=== PATIENT | male | born 2005 | race Caucasian/White ===

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

== ENCOUNTER 2025-08-22 17:25 | Emergency (ER) | payer OTHER, SELFPAY ==
[2025-08-22 17:26] VITALS: BP 158/108; PULSE 50; RESP 18; TEMP 36.6; O2SAT 99
--- NOTE | 2025-08-22 17:43 | ED.GENADUL_ITS ---
Discharge Plan Disposition Patient Disposition: Home Condition: Good Discharge Details Clinical Impression: Nephrolithiasis Primary Care Provider: Felicitas Seymour ED Provider: Jeanette Sofia Home Meds and New Rx's Prescriptions: New tamsulosin 0.4 mg capsule 0.4 mg PO DAILY Qty: 14 0RF morphine 15 mg tablet 15 mg PO Q6H PRNQty: 20 0RF Discharge Instructions Instructions: Kidney stones in adults, Morphine (Systemic), How to Strain Your Urine Additional Instructions: A referral has been placed to urology. Please call Dr. Shook's office first thing in the morning to schedule follow-up appointment. I encourage you to strain your urine every time you urinate to evaluate for stone fragments. Stay well-hydrated, drinking plenty of fluid throughout the day. You are being prescribed tamsulosin. Please take daily to help with stone expulsion. For pain control I recommend that you take ibuprofen 600 mg every 6 hours for pain control. Your next dose may be taken at 1145 pm. For severe pain you may use morphine 15 mg p.o. every 6 hours as needed. Please note that this is a controlled substance and may be addictive, so please only use for severe pain as needed. Heating pads may also be helpful. Return to emergency care if you develop new fevers, are unable to hold down fluids, have new severe abdominal pain, feel that you are unable to empty your bladder, unable to control your pain, or if you are very worried and need to be rechecked again immediately Stand Alone Forms: Portal Information Referrals: Ryan Shook MD [ [facility]FF PHYSICIAN, Urology] HPI General Date/Time Provider Initiated Documentation: 08/22/25 17:30 . HPI Narrative: Fuentes is a 20-year-old male who presents to the emergency department today for evaluation of right-sided flank pain wrapping around to his right lower quadrant accompanied by nausea, hematuria, and sweating/chills. He reports symptoms started this morning. Denies recorded fevers, congestion, vomiting, change in bowel movements, swelling or rashes to testicles or penis. No history of kidney problems previously; denies significant past medical history. Related Data Home Medications ?Medication ?Instructions ?Recorded ?Confirmed morphine 15 mg immediate release 15 mg PO Q6H PRN #20 tabs 08/22/25 tablet tamsulosin 0.4 mg capsule 0.4 mg PO DAILY #14 caps 10/16 Previous Rx's ?Medication ?Instructions ?Recorded morphine 15 mg immediate release 15 mg PO Q6H PRN #20 tabs 08/22/25 tablet tamsulosin 0.4 mg capsule 0.4 mg PO DAILY #14 caps 10/16 Allergies Allergy/AdvReac Type Severity Reaction Status Date / Time No Known Allergies Allergy Verified 08/22/25 17:29 General Stated Complaint: FlankPain NED: 3 Exam Const General: cooperative, anxious and other (In pain, tearful) Nutritional Appearance: overweight Orientation: alert and oriented x3 HENMT Head: normal to inspection General nose exam: external nose normal Mouth: oral mucosae normal Resp Effort & Inspection: normal respiratory effort and able to speak in complete sentences Auscultation: clear to auscultation bilaterally Cardio Rate: regular rate Rhythm: regular rhythm GI Inspection: normal to inspection, no abdominal wall ecchymosis and non-distended Palpation: soft, no guarding, no masses, no pulsatile masses and tender (R>L) Back/Spine/Pelvis Back: no CVA tenderness Neuro General: patient alert, patient oriented x3, tone normal and moves all extremities Course Vital Signs Vital signs: Vital Signs Temperature 36.6 C 08/22/25 17:26 Pulse 50 L 08/22/25 17:26 Respiratory Rate 18 08/22/25 17:26 Blood Pressure 158/108 H 08/22/25 17:26 Pulse Oximetry 99 08/22/25 17:26 Temperature 36.6 C 08/22/25 17:26 Pulse 50 L 08/22/25 17:26 Respiratory Rate 18 08/22/25 17:26 Blood Pressure 158/108 H 08/22/25 17:26 Pulse Oximetry 99 08/22/25 17:26 Oxygen Delivery Method Room Air 08/22/25 17:26 Oxygen Flow Rate 0 08/22/25 17:26 Pain Level 10 08/22/25 17:26 Medical Decision Making Fuentes is a 20-year-old male who presents to the emergency department today for evaluation of right-sided flank pain wrapping around to his right lower quadrant accompanied by nausea, hematuria, and sweating/chills. He reports symptoms started this morning. Denies recorded fevers, congestion, vomiting, change in bowel movements, swelling or rashes to testicles or penis. No history of kidney problems previously; denies significant past medical history. Physical exam remarkable for markedly uncomfortable patient who is tearful during exam. Abdomen soft, nondistended, diffusely tender to palpation, greatest on right side. No CVA tenderness. Easy work of breathing, lung sounds clear bilaterally. Normal heart sounds. Genital exam unremarkable, performed with candle making supervisor at bedside. DDx includes was not limited to: Pyelonephritis, nephrolithiasis, bladder stone, UTI On the emergency department Fuentes received IV Zofran, Toradol and morphine for pain control with good relief of symptoms. I independently interpreted the following tests: CBC notable for leukocytosis, white cell count 15.93. CMP reassuring. UA notable for specific gravity >1.030, large blood, greater than 50 RBCs. UA not consistent with UTI, no concern for infected stone at this time. CT abdomen/pelvis notable for right hydroureteronephrosis with obstructive 2 mm calculus at the right UVJ. History and presentation consistent with uncomplicated 2 mm obstructing kidney stone. No red flags concerning for infection at this time or other complications. Patient is able to take p.o. without difficulty. Pain has been well-controlled with morphine and Toradol. Reviewed discharge instructions with patient and his mother, including symptomatic management, use of tamsulosin, risks associated with opioid pain medication use, and red flags indicating need for return to emergency care. Referral placed to [facility] u[facility]. Patient voices agreement with plan of care. Imaging Data Radiologic Study: Radiologist's impression: PROCEDURE INFORMATION: Exam: CT Abdomen And Pelvis Without Contrast Exam date and time: 08/22/2025 7:22 PM Age: 20 years old Clinical indication: Other: Flank pain; Hematuria, flank pain TECHNIQUE: Imaging protocol: Computed tomography of the abdomen and pelvis without contrast. Radiation optimization: All CT scans at this facility use at least one of these dose optimization techniques: automated exposure control; mA and/or kV adjustment per patient size (includes targeted exams where dose is matched to clinical indication); or iterative reconstruction. COMPARISON: No relevant prior studies available. FINDINGS: Liver: Hepatic steatosis. Gallbladder and biliary ducts: Normal Pancreas: Normal. Spleen: Normal. Adrenal glands: No mass. Kidneys and ureters: Right hydroureteronephrosis, with obstructive 2 mm calculus at the right UVJ (series 2, image 432). Stomach and bowel: Normal. Appendix: No evidence of appendicitis. Intraperitoneal space: No free air. No abscess. No ascites. Vasculature: No abdominal aortic aneurysm. Lymph nodes: No enlarged lymph nodes. Urinary bladder: Unremarkable as visualized. Reproductive: Unremarkable as visualized. Bones/joints: No acute abnormality. Soft tissues: Normal. IMPRESSION: Right hydroureteronephrosis, with obstructive 2 mm calculus at the right UVJ (series 2, image 432). PFSH All Active Problems (Updated 08/22/25 @ 21:08 by Jeanette Medina) Nephrolithiasis (Chronic) Pediatric body mass index (BMI) of greater than or equal to 95th percentile for age (Acute) Medical History Snores Sprained ankle Happened 2-3 weeks ago 07/23/19 Surgical History Circumcision Family History Mother Obstructive sleep apnea Essential hypertension Mental disorder DEPRESSION/ANXIETY Father Obstructive sleep apnea Diabetes Mental disorder DEPRESSION PBA (pseudobulbar affect) Multiple sclerosis Asthma GRANDPARENT Diabetes Essential hypertension Heart disease Neoplasm Brother ADHD (attention deficit hyperactivity disorder) Asthma Social History (Updated 07/31/22 @ 16:34 by Joya Long RN) Smoking/Tobacco Use Status: Never Second Hand Exposure: No Smoking risk assessment performed?: Yes Alcohol Intake: current Alcohol Intake frequency: a few times a week Drug use: Daily Substance use type: marijuana Adopted: No Foster care: No Communication Needs: None Education Level: high school Details: [employer], 12th grade ([id number]) Pets and animals: Yes (1 dog, 2 cats) Pets and animals: cat(s) and dog(s) Current gender identity: male What type of physical activity do you participate in: other Details: Lacrosse Seatbelt use: always Helmet use: Yes Helmet use: always Fire extinguisher in home: No Carbon monox detector in home: Yes Firearms in home: Yes Firearms unloaded and locked: Yes Do you feel safe at home: Yes Do you feel safe in your relationship?: Yes
[2025-08-22 17:59] LABS: Lab Add On Test DONE
[2025-08-22 18:04] LABS: Glucose Negative (Negative)
[2025-08-22 18:13] LABS: C & S Indicated? No; RBC >50 HPF (0-2); WBC 0-2 HPF (0-5)
[2025-08-22] MEDS: MORPHine 10 MG/ML VIAL 5 MG IVP (18:26)
[2025-08-22] MEDS: Ondansetron 4 MG/2 ML VIAL IVP (18:26)
[2025-08-22] MEDS: Ketorolac 15 MG/ML VIAL IVP (18:27)
[2025-08-22] MEDS: Normal Saline 1,000 ML 1000 ML IV (18:40)
--- NOTE | 2025-08-22 18:45 | DI.CT_ITS ---
Exam(s) CT ABDOMEN PELVIS WO EXAM: CT ABDOMEN PELVIS WO CLINICAL HISTORY: hematuria, flank pain. TECHNIQUE: Imaging Protocol: Axial computed tomography images with coronal and sagittal reformatted images were created and reviewed CONTRAST MATERIAL: Intravenous: none Oral: None COMPARISON: No exams were available for comparison FINDINGS: VISUALIZED LUNG BASES: No nodules nor pleural effusions evident. ABDOMEN: There is no ascites. LIVER: There is diffusely hypodense implying steatosis. There no discrete focal hepatic lesions. There are no obvious dilated intrahepatic ducts. GALLBLADDER/BILIARY: No obvious gallbladder pathology. CBD is not dilated. PANCREAS: No evidence of pancreatic mass nor dilatation of the pancreatic duct. SPLEEN: Spleen is not enlarged. No obvious intrasplenic lesions. ADRENALS: There are no significant adrenal masses. KIDNEYS:Left kidney unremarkable. There is mild hydronephrosis-hydroureter on the right side. There is a culprit 2 mm calculus at the right ureterovesical junction. No other radiopaque calculi seen in either ureter. No renal cysts nor solid renal masses.. ABDOMINAL AORTA: Abdominal aorta is not enlarged. LYMPH NODES: There is no retroperitoneal nor paraaortic adenopathy. ABDOMINAL WALL: No evidence of significant anterior abdominal wall nor inguinal hernia. GI: There is no evidence of bowel obstruction, free air, nor abscess. PELVIS: LYMPH NODES: There is no intrapelvic nor inguinal adenopathy. GI: No evidence of appendicitis.No evidence of sigmoid diverticulitis. URINARY BLADDER: Partially collapsed. REPRODUCTIVE: Prostate size normal. Seminal vesicles unremarkable. OSSEOUS: No significant osseous lesions. No fractures. IMPRESSION: 1. Main finding here is a small 2 millimeter calculus in the lower right ureter at the ureterovesical junction with mild ipsilateral hydro nephrosis and hydroureter. 2. There are no remaining radiopaque calculi in either kidney. 3. Hepatic steatosis incidentally noted. Preliminary virtual Radiology report was reviewed. RADIATION DOSE DELIVERED: 945.77mGy.cm Total DLP DATA REPOSITORY: All CT scans at this facility are submitted to the National Radiology Data Registry (NRDR) Dose Index Registry (DIR) with the [employer] (ACR). RADIATION OPTIMIZATION: All CT scans at this facility use at least one of these dose optimization techniques: automated exposure control; mA and/or kV adjustment per patient size (includes targeted exams where dose is matched to clinical indication); or iterative reconstruction.
[2025-08-22 18:47] LABS: Abs Immature Grans 0.07 10^3/uL (0.0-0.06); HCT 45.6 % (40.0-50.0); HGB 15.4 g/dL (13.5-17.5); Immature Grans % 0.4 %; MCH 28.0 pg (27.0-33.0); MCHC 33.8 % (32.0-36.0); MCV 83 fL (80-95); MPV 10.5 fL (8.0-11.0); Platelet Count 308 10^3/uL (130-400); RBC 5.50 10^6/uL (4.36-5.78); RDW 12.2 % (11.8-14.1); RDW-SD 37.4 fL; WBC 15.93 10^3/uL (4.4-10.8)
[2025-08-22 19:02] LABS: Lipase 23 U/L (<53)
[2025-08-22 19:04] LABS: ALT 53 U/L (10-49); AST 31 U/L (<34); Albumin 5.0 g/dL (3.2-5.0); Alkaline Phosphatase 76 U/L (46-116); Anion Gap 13.2 mmol/L (3-11); BUN 17 mg/dL (9-23); Bilirubin, Total 1.00 mg/dL (0.2-1.2); CO2 20.8 mmol/L (20.0-31.0); Calcium 9.7 mg/dL (8.3-10.6); Chloride 107 mmol/L (98-107); Glucose 118 mg/dL (74-106); Potassium 3.4 mmol/L (3.5-5.1); Sodium 141 mmol/L (136-145); Total Protein 8.1 g/dL (5.7-8.2)
--- NOTE | 2025-08-22 20:55 | DI.[facility]AD_ITS ---
PROCEDURE INFORMATION: Exam: CT Abdomen And Pelvis Without Contrast Exam date and time: 08/22/2025 7:22 PM Age: 20 years old Clinical indication: Other: Flank pain; Hematuria, flank pain TECHNIQUE: Imaging protocol: Computed tomography of the abdomen and pelvis without contrast. Radiation optimization: All CT scans at this facility use at least one of these dose optimization techniques: automated exposure control; mA and/or kV adjustment per patient size (includes targeted exams where dose is matched to clinical indication); or iterative reconstruction. COMPARISON: No relevant prior studies available. FINDINGS: Liver: Hepatic steatosis. Gallbladder and biliary ducts: Normal Pancreas: Normal. Spleen: Normal. Adrenal glands: No mass. Kidneys and ureters: Right hydroureteronephrosis, with obstructive 2 mm calculus at the right UVJ (series 2, image 432). Stomach and bowel: Normal. Appendix: No evidence of appendicitis. Intraperitoneal space: No free air. No abscess. No ascites. Vasculature: No abdominal aortic aneurysm. Lymph nodes: No enlarged lymph nodes. Urinary bladder: Unremarkable as visualized. Reproductive: Unremarkable as visualized. Bones/joints: No acute abnormality. Soft tissues: Normal. IMPRESSION: Right hydroureteronephrosis, with obstructive 2 mm calculus at the right UVJ (series 2, image 432). Dictated and Authenticated by: Joseph Layne MD. Orderin Ellyn Reid MD
[2025-08-22 21:36] VITALS: BP 131/74; PULSE 56; RESP 18; TEMP 36.6; O2SAT 98
[2025-08-22] MEDS: Tamsulosin 0.4 MG CAPCR PO (21:38)
[2025-08-22] MEDS: MORPHine IR 15 MG TAB, 4 TABS/BTL PO (21:39)
== END 2025-08-22 21:43 | disposition home or self-care (01) ==
PROVIDERS: Emergency Provider Nurse Practitioner Family; PCP Nurse Practitioner Family
DX: N20.0 Calculus of kidney (principal)
CPT/HCPCS: 80053; 83690; 96361; 96374; 96375; 99284; 74176; 81003; 81015; 85025; J1885; J2270; J2405

== ENCOUNTER 2025-08-23 16:55 | Observation (INO) | payer OTHER, SELFPAY ==
[2025-08-23 17:16] VITALS: BP 143/81; PULSE 51; RESP 22; TEMP 37.2
[2025-08-23 17:34] VITALS: BP 143/81; PULSE 51; RESP 22; TEMP 37.2
[2025-08-23] MEDS: Ondansetron 4 MG/2 ML VIAL IVP (17:56)
[2025-08-23] MEDS: Normal Saline 1,000 ML 1000 ML IV (17:56)
[2025-08-23] MEDS: Ketorolac 15 MG/ML VIAL IVP (18:00)
[2025-08-23 18:04] LABS: Abs Immature Grans 0.08 10^3/uL (0.0-0.06); HCT 41.5 % (40.0-50.0); HGB 13.8 g/dL (13.5-17.5); Immature Grans % 0.5 %; MCH 27.9 pg (27.0-33.0); MCHC 33.3 % (32.0-36.0); MCV 84 fL (80-95); MPV 10.5 fL (8.0-11.0); Platelet Count 237 10^3/uL (130-400); RBC 4.95 10^6/uL (4.36-5.78); RDW 12.3 % (11.8-14.1); RDW-SD 37.6 fL; WBC 17.05 10^3/uL (4.4-10.8)
[2025-08-23 18:30] LABS: Anion Gap 8.4 mmol/L (3-11); BUN 17 mg/dL (9-23); CO2 26.6 mmol/L (20.0-31.0); Calcium 9.1 mg/dL (8.3-10.6); Chloride 107 mmol/L (98-107); Glucose 102 mg/dL (74-106); Potassium 3.9 mmol/L (3.5-5.1); Sodium 142 mmol/L (136-145)
--- NOTE | 2025-08-23 18:45 | DI.CT_ITS ---
Exam(s) CT ABDOMEN PELVIS WO EXAM: CT ABDOMEN PELVIS WO CLINICAL HISTORY: kidney stone, continued vomiting. TECHNIQUE: Imaging Protocol: Axial computed tomography images with coronal and sagittal reformatted images were created and reviewed. COMPARISON: CT CT ABDOMEN PELVIS WO from 08/22/2025 FINDINGS: ABDOMEN: Lung Bases: Normal where visualized. Liver: There is diffuse decreased attenuation of the liver consistent with fatty infiltration. No measurable mass. Gallbladder and biliary tract: No radiodense calculus or biliary ductal dilation. Pancreas: Normal density, no abnormal calcifications or inflammatory process. Spleen: Normal. Kidneys: Normal size, contour and axis.There is again seen a 2 mm right UVJ stone causing mild hydronephrosis. This is grossly unchanged compared to the prior examination. No other renal stones are present. No masses seen. There is a circum aortic left renal vein. Adrenal glands: No mass is seen. Lymph nodes: Within normal limits. Abdominal Aorta: Abdominal portion non-dilated. PELVIS: Bladder:The urinary bladder wall is mildly thickened which may be due to underdistention. Cystitis should also be considered. Bowel: No obstruction or bowel wall thickening. Appendix is unremarkable. Peritoneal cavity: No ascites, collection or mesenteric inflammatory response. No free air. Reproductive organs: Unremarkable as visualized. Bones: Within normal limits. Soft Tissues: Within normal limits. IMPRESSION: 1. There is again seen a 2 mm right UVJ stone causing hydronephrosis which appears unchanged. 2. Mild thickening of the wall of the urinary bladder. This may be due to underdistention but cystitis should also be considered. 3. Diffuse fatty infiltration of the liver. 4. The preliminary [facility] report was reviewed. RADIATION DOSE DELIVERED: 879.29mGy.cm Total DLP DATA REPOSITORY: All CT scans at this facility are submitted to the National Radiology Data Registry (NRDR) Dose Index Registry (DIR) with the [employer] (ACR). RADIATION OPTIMIZATION: All CT scans at this facility use at least one of these dose optimization techniques: automated exposure control; mA and/or kV adjustment per patient size (includes targeted exams where dose is matched to clinical indication); or iterative reconstruction.
--- NOTE | 2025-08-23 18:48 | NUR.NOTE ---
Pt requested to go to bathroom. IV infusion complete and disconnected. Pt. commented that toradol really worked. Morphine neverever works and leaves me feeling like shit. I wish they would stop giving me morphine. Ambulatory to bathroom and back without incident. Mom at bedside.Nursing Note:
[2025-08-23 19:03] LABS: Glucose Negative (Negative)
[2025-08-23 19:10] LABS: C & S Indicated? No; RBC >50 HPF (0-2); WBC Negative HPF (0-5)
[2025-08-23 19:37] VITALS: BP 121/64; PULSE 64; TEMP 37; O2SAT 96
--- NOTE | 2025-08-23 19:45 | DI.VRAD_ITS ---
PROCEDURE INFORMATION: Exam: CT Abdomen And Pelvis Without Contrast Exam date and time: 08/23/2025 7:19 PM Age: 20 years old Clinical indication: Vomiting; Additional info: Kidney stone, continued vomiting TECHNIQUE: Imaging protocol: Computed tomography of the abdomen and pelvis without contrast. COMPARISON: CT ABDOMEN PELVIS WO 08/22/2025 7:22 PM FINDINGS: Liver: Normal. No mass. Gallbladder and biliary ducts: Normal. No calcified stones. No ductal dilation. Pancreas: Normal. No ductal dilation. Spleen: Normal. No splenomegaly. Adrenal glands: Normal. No mass. Kidneys and ureters: 3 mm stone again noted at the right ureterovesical junction. Moderate right hydroureteronephrosis and periureteral fatty stranding. Left kidney appears normal. No evidence of nephrolithiasis. Stomach and bowel: Unremarkable. No obstruction. No mucosal thickening. Appendix: The appendix is visualized and appears normal. Intraperitoneal space: Unremarkable. No free air. No significant fluid collection. Vasculature: Unremarkable. No abdominal aortic aneurysm. Lymph nodes: Unremarkable. No enlarged lymph nodes. Urinary bladder: Mild diffuse bladder wall thickening. 3 mm right UVJ stone again noted. Otherwise unremarkable. Reproductive: Unremarkable as visualized. Bones/joints: Unremarkable. No acute fracture. Soft tissues: Unremarkable. IMPRESSION: 1. Persistent 3 mm right UVJ stone with moderate hydronephrosis 2. Mild apparent bladder wall thickening may be due to underdistention or reflect cystitis Dictated and Authenticated by: Ronan Russell MD. Orderin Ellyn Reid MD
[2025-08-23] MEDS: cefTRIAXone 2 GM/50 ML BAG IVPB (19:54)
[2025-08-23] MEDS: Tamsulosin 0.4 MG CAPCR PO (20:51)
--- NOTE | 2025-08-23 21:10 | W.ED.GENAD ---
Discharge Plan Disposition Patient Disposition: Admit to [facility] Condition: Good Discharge Details Clinical Impression: Nephrolithiasis Primary Care Provider: Felicitas Seymour ED Provider: Jeanette Sofia Home Meds and New Rx's Prescriptions: No Action tamsulosin 0.4 mg capsule 0.4 mg PO DAILY Qty: 14 0RF morphine 15 mg tablet 15 mg PO Q6H PRNQty: 20 0RF HPI General Date/Time Provider Initiated Documentation: 08/23/25 17:19. HPI Narrative: Fuentes is a 20-year-old male presents to the emergency department accompanied by his mother for uncontrolled pain and vomiting associated with kidney stone since this afternoon. He was evaluated in the emergency department last night after sudden onset of right-sided flank pain wrapping around to his groin, diagnosed with 2 mm calculus at the right UVJ with mild right hydronephrosis. Today he developed uncontrollable vomiting starting at 3 PM, unable to keep down any fluids or medications. Denies recent fever/chills, illness such as congestion/sore throat/cough, change in bowel movements (no BM today), difficulty emptying his bladder, swelling or rashes to testicles or penis. Strong family history of kidney stones. Related Data Home Medications ?Medication ?Instructions ?Recorded ?Confirmed morphine 15 mg immediate release 15 mg PO Q6H PRN #20 tabs 08/22/25 08/23/25 tablet tamsulosin 0.4 mg capsule 0.4 mg PO DAILY #14 caps 08/22/25 08/23/25 Previous Rx's ?Medication ?Instructions ?Recorded morphine 15 mg immediate release 15 mg PO Q6H PRN #20 tabs 08/22/25 tablet tamsulosin 0.4 mg capsule 0.4 mg PO DAILY #14 caps 08/22/25 Allergies Allergy/AdvReac Type Severity Reaction Status Date / Time No Known Allergies Allergy Verified 08/23/25 17:23 General Stated Complaint: Urinary NED: 3 Exam Const General: cooperative, healthy appearing, no acute distress and well developed Nutritional Appearance: average body habitus Orientation: alert and oriented x3 HENMT Head: normal to inspection Face and sinus: dry mucous membranes (slightly tacky) Resp Effort & Inspection: normal respiratory effort and paradoxical thoraco-abdominal movements Auscultation: clear to auscultation bilaterally Cardio Rate: regular rate Rhythm: regular rhythm GI Inspection: normal to inspection and non-distended Palpation: soft, no guarding and nontender Back/Spine/Pelvis Back: no CVA tenderness Course Vital Signs Vital signs: Vital Signs Temperature 37.2 C 08/23/25 17:16 Pulse 51 L 08/23/25 17:16 Respiratory Rate 22 08/23/25 17:16 Blood Pressure 143/81 H 08/23/25 17:16 Temperature 37 C 08/23/25 19:37 Pulse 64 08/23/25 19:37 Respiratory Rate 22 08/23/25 17:34 Blood Pressure 121/64 08/23/25 19:37 Blood Pressure Mean 83 08/23/25 19:37 Pulse Oximetry 96 08/23/25 19:37 Pain Level 9 08/23/25 17:34 Lab/Test Results Lab/Test Results: 08/23/25 20:22 Blood Blood Culture - Pending 08/23/25 19:45 Blood Blood Culture - Pending Laboratory Tests Range/Units 08/23/25 08/23/25 17:53 18:48 WBC (4.4-10.8) 10^3/uL 17.05 H RBC (4.36-5.78) 10^6/uL 4.95 Hgb (13.5-17.5) g/dL 13.8 Hct (40.0-50.0) % 41.5 MCV (80-95) fL 84 MCH (27.0-33.0) pg 27.9 MCHC (32.0-36.0) % 33.3 RDW (11.8-14.1) % 12.3 Plt Count (130-400) 10^3/uL 237 MPV (8.0-11.0) fL 10.5 Immature Gran % % 0.5 Neutrophils % % 82.3 Lymphocytes % % 11.3 Monocytes % % 5.3 Eosinophils % % 0.4 Basophils % % 0.2 Nucleated RBC % (0.0-0.3) % 0.0 Absolute Neutrophils (1.2-6.7) 10^3/uL 14.03 H Absolute Lymphocytes (1.2-3.4) 10^3/uL 1.93 Absolute Monocytes (0.1-0.8) 10^3/uL 0.90 H Absolute Eosinophils (0.0-0.7) 10^3/uL 0.07 Absolute Basophils (0.0-0.2) 10^3/uL 0.03 Sodium (136-145) mmol/L 142 Potassium (3.5-5.1) mmol/L 3.9 Chloride (98-107) mmol/L 107 Carbon Dioxide (20.0-31.0) mmol/L 26.6 Anion Gap (3-11) mmol/L 8.4 BUN (9-23) mg/dL 17 Creatinine (0.73-1.18) mg/dL 1.15 Est GFR (CKD-EPI 2020) (mL/min/1.73m2) 80.26 Glucose (74-106) mg/dL 102 Calcium (8.3-10.6) mg/dL 9.1 Urine Color (Yellow) Yellow Urine Clarity (Clear) Clear Urine pH (5-8) 6.0 Ur Specific [place] (1.005-1.025) 1.020 Urine Protein (Neg-Trace) mg/dL Trace Urine Ketones (Negative) mg/dL Trace H Urine Blood (Negative) Large H Urine Nitrite (Negative) Negative Urine Bilirubin (Negative) Negative Urine Urobilinogen (Up to 0.2) mg/dL 0.2 Ur Leukocyte Esterase (Negative) Negative Urine RBC (0-2) HPF >50 H Urine WBC (0-5) HPF Negative Ur Epithelial Cells (Negative) HPF Rare Urine Crystals (Negative) HPF Negative Urine Bacteria (Negative) HPF Moderate Urine Casts (Negative) LPF Negative Urine Mucus (Negative) Moderate Ur Culture Indicated? No Urine Glucose (Negative) mg/dL Negative Medical Decision Making Fuentes is a 20-year-old male presents to the emergency department accompanied by his mother for uncontrolled pain and vomiting associated with kidney stone since this afternoon. He was evaluated in the emergency department last night after sudden onset of right-sided flank pain wrapping around to his groin, diagnosed with 2 mm calculus at the right UVJ with mild right hydronephrosis. Today he developed uncontrollable vomiting starting at 3 PM, unable to keep down any fluids or medications. Denies recent fever/chills, illness such as congestion/sore throat/cough, change in bowel movements (no BM today), difficulty emptying his bladder, swelling or rashes to testicles or penis. Strong family history of kidney stones. Physical exam remarkable for uncomfortable appearing patient. Slightly tacky mucous membranes. Easy work of breathing, lung sounds clear bilaterally. Normal heart sounds. Abdomen soft, nondistended, nontender to palpation. History and presentation consistent with kidney stone that has failed outpatient management. I independently interpreted the following tests: Worsening leukocytosis today, 17.05 (vs 15.93 yesterday). CMP unremarkable. Patient continues to have large blood in urine, no WBCs, no nitrates, moderate bacteria. Patient treated for presumed infected stone with ceftriaxone (no recent hospitalizations, h/o UTI, or recent abx use) Urology is not available tonight or tomorrow here in house. I called [facility] [place], discussed case with Dr. Malone including patient presentation and labs, he is agreeable with plan for ceftriaxone. Patient does not require emergent intervention, patient to be listed for tomorrow for stenting in the afternoon. Discussed case with Dr. Espinoza, hospitalist. Patient to be admitted upstairs while awaiting [facility] transfer tomorrow. Imaging Data Radiologic Study: Radiologist's impression: PROCEDURE INFORMATION: Exam: CT Abdomen And Pelvis Without Contrast Exam date and time: 08/23/2025 7:19 PM Age: 20 years old Clinical indication: Vomiting; Additional info: Kidney stone, continued vomiting TECHNIQUE: Imaging protocol: Computed tomography of the abdomen and pelvis without contrast. COMPARISON: CT ABDOMEN PELVIS WO 08/22/2025 7:22 PM FINDINGS: Liver: Normal. No mass. Gallbladder and biliary ducts: Normal. No calcified stones. No ductal dilation. Pancreas: Normal. No ductal dilation. Spleen: Normal. No splenomegaly. Adrenal glands: Normal. No mass. Kidneys and ureters: 3 mm stone again noted at the right ureterovesical junction. Moderate right hydroureteronephrosis and periureteral fatty stranding. Left kidney appears normal. No evidence of nephrolithiasis. Stomach and bowel: Unremarkable. No obstruction. No mucosal thickening. Appendix: The appendix is visualized and appears normal. Intraperitoneal space: Unremarkable. No free air. No significant fluid collection. Vasculature: Unremarkable. No abdominal aortic aneurysm. Lymph nodes: Unremarkable. No enlarged lymph nodes. Urinary bladder: Mild diffuse bladder wall thickening. 3 mm right UVJ stone again noted. Otherwise unremarkable. Reproductive: Unremarkable as visualized. Bones/joints: Unremarkable. No acute fracture. Soft tissues: Unremarkable. IMPRESSION: 1. Persistent 3 mm right UVJ stone with moderate hydronephrosis 2. Mild apparent bladder wall thickening may be due to underdistention or reflect cystitis PFSH All Active Problems (Updated 08/23/25 @ 21:21 by Jeanette Medina) Nephrolithiasis (Chronic) Pediatric body mass index (BMI) of greater than or equal to 95th percentile for age (Acute) Medical History Snores Sprained ankle Happened 2-3 weeks ago 07/23/19 Surgical History Circumcision Family History Mother Obstructive sleep apnea Essential hypertension Mental disorder DEPRESSION/ANXIETY Father Obstructive sleep apnea Diabetes Mental disorder DEPRESSION PBA (pseudobulbar affect) Multiple sclerosis Asthma GRANDPARENT Diabetes Essential hypertension Heart disease Neoplasm Brother ADHD (attention deficit hyperactivity disorder) Asthma Social History (Updated 07/31/22 @ 16:34 by Joya Long RN) Smoking/Tobacco Use Status: Current every day Second Hand Exposure: No Smoking risk assessment performed?: Yes Alcohol Intake: current Alcohol Intake frequency: a few times a month Alcohol type: beer and hard liquor Drug use: Daily Substance use type: marijuana Adopted: No Foster care: No Communication Needs: None Education Level: high school Details: [employer], 12th grade ([id number]) Pets and animals: Yes (1 dog, 2 cats) Pets and animals: cat(s) and dog(s) Current gender identity: male What type of physical activity do you participate in: other Details: Lacrosse Seatbelt use: always Helmet use: Yes Helmet use: always Fire extinguisher in home: No Carbon monox detector in home: Yes Firearms in home: Yes Firearms unloaded and locked: Yes Do you feel safe at home: Yes Do you feel safe in your relationship?: Yes PAWSS Have you Been Recently Intoxicated or Drunk Within the Last 30 days?: Yes Have you Ever Experienced Previous Episodes of Alcohol Withdrawal?: No Have you ever Experienced Withdrawal Seizures?: No Have you ever Experienced Delirium Tremens(DT)s?: No Have you ever undergone Alcohol Rehabilitation Treatment (i.e, inpt ot outpatient treatment programs)?: No Have you ever Experienced Blackouts?: No Have you ever Combined Alcohol with other Downers within the last 90 days?: No Have you ever Combined Alcohol with any other Substance of Abuse during the last 90 days?: No Positive Blood Alcohol level on Presentation? [PCS.BAL]: No Evidence of Increased Autonomic Activity (i.e. HR>120, tremor, sweating, agitation, nausea)?: No Result: 1
--- NOTE | 2025-08-23 23:09 | W.PM.HP.N ---
Date of service: 08/23/25 Time of Service: 23:09 Assessment and Plan Assessment and plan (1) Nephrolithiasis: Status: Chronic Assessment and plan: pt for xfer to [facility] [place]. Cw pain meds (toradol)/flomax/IVF. NPO at midnight. Rocephin can be given again tomorrow at the discretion of Hospitalist. WBC most likely reactive 2/2 nv. LE/Nitrite negative x 2 (2) Nausea & vomiting: Status: Acute Assessment and plan: cw zofran History of Present Illness History of Present Illness Chief Complaint: renal calculi Narrative: This is a 20 y/o male with no significant PMH who presented to the ED yesterday with right flank pain. Work up yesterday was indicative of a renal calculi 2-3mm. Pt was sent home with flomax and pain control. Pt continued to have right flank pain as well as new onset nausea and vomiting. Pt was seen again in the ED and was reimaged. Pt was noted to have continued right renal calculi. Pt was accepted in transfer to [facility] as our Urology service is not available. Pt was accepted by Dr Malone (urology) and will be boarded here overnight. Pt states pain as well as n/v have improved since admission. No prior surgeries/no allergies/occ thc and nicotine use. Does not want NRT. NPO at midnight. Low risk dvt. Full code. Pt was give rocephin in the ED. Labs reviewed including elevated wbc. UA with hematuria. Blood cultures pending x 2. No history of renal stones in the past 1. There is again seen a 2 mm right UVJ stone causing hydronephrosis which appears unchanged. 2. Mild thickening of the wall of the urinary bladder. This may be due to underdistention but cystitis should also be considered. 3. Diffuse fatty infiltration of the liver. 4. The preliminary [facility] report was reviewed. Review of Systems All systems reviewed & are unremarkable except as noted in HPI and below PFSH All Active Problems (Updated 08/23/25 @ 23:23 by Emilio Espinoza MD) Nausea & vomiting (Acute) Nephrolithiasis (Chronic) Pediatric body mass index (BMI) of greater than or equal to 95th percentile for age (Acute) Medical History Snores Sprained ankle Happened 2-3 weeks ago 07/23/19 Surgical History Circumcision Family History Mother Obstructive sleep apnea Essential hypertension Mental disorder DEPRESSION/ANXIETY Father Obstructive sleep apnea Diabetes Mental disorder DEPRESSION PBA (pseudobulbar affect) Multiple sclerosis Asthma GRANDPARENT Diabetes Essential hypertension Heart disease Neoplasm Brother ADHD (attention deficit hyperactivity disorder) Asthma Social History (Updated 07/31/22 @ 16:34 by Joya Long RN) Smoking/Tobacco Use Status: Current every day Second Hand Exposure: No Smoking risk assessment performed?: Yes Alcohol Intake: current Alcohol Intake frequency: a few times a month Alcohol type: beer and hard liquor Drug use: Daily Substance use type: marijuana Adopted: No Foster care: No Communication Needs: None Education Level: high school Details: [employer], 12th grade ([id number]) Pets and animals: Yes (1 dog, 2 cats) Pets and animals: cat(s) and dog(s) Current gender identity: male What type of physical activity do you participate in: other Details: Lacrosse Seatbelt use: always Helmet use: Yes Helmet use: always Fire extinguisher in home: No Carbon monox detector in home: Yes Firearms in home: Yes Firearms unloaded and locked: Yes Do you feel safe at home: Yes Do you feel safe in your relationship?: Yes Meds Allergies and Home Medications Allergies Allergy/AdvReac Type Severity Reaction Status Date / Time No Known Allergies Allergy Verified 08/23/25 17:23 Home Medications ?Medication ?Instructions ?Recorded ?Confirmed ?Type morphine 15 mg immediate release 15 mg PO Q6H PRN #20 tabs 08/22/25 08/23/25 Rx tablet tamsulosin 0.4 mg capsule 0.4 mg PO DAILY #14 caps 08/22/25 08/23/25 Rx Exam Narrative Exam Narrative: heent ncat mmm neck no lad no jvd cv rrr no mrg lungs ctab abd-sntnd back mild ttp right flank Results Labs 08/23/25 17:53 08/23/25 17:53 Labs: Laboratory Results - last 24 hr 08/23/25 08/23/25 17:53 18:48 WBC 17.05 H RBC 4.95 Hgb 13.8 Hct 41.5 MCV 84 MCH 27.9 MCHC 33.3 RDW 12.3 Plt Count 237 MPV 10.5 Immature Gran % 0.5 Neutrophils % 82.3 Lymphocytes % 11.3 Monocytes % 5.3 Eosinophils % 0.4 Basophils % 0.2 Nucleated RBC % 0.0 Absolute Neutrophils 14.03 H Absolute Lymphocytes 1.93 Absolute Monocytes 0.90 H Absolute Eosinophils 0.07 Absolute Basophils 0.03 Sodium 142 Potassium 3.9 Chloride 107 Carbon Dioxide 26.6 Anion Gap 8.4 BUN 17 Creatinine 1.15 Est GFR (CKD-EPI 2020) 80.26 Glucose 102 Calcium 9.1 Urine Color Yellow Urine Clarity Clear Urine pH 6.0 Ur Specific [place] 1.020 Urine Protein Trace Urine Ketones Trace H Urine Blood Large H Urine Nitrite Negative Urine Bilirubin Negative Urine Urobilinogen 0.2 Ur Leukocyte Esterase Negative Urine RBC >50 H Urine WBC Negative Ur Epithelial Cells Rare Urine Crystals Negative Urine Bacteria Moderate Urine Casts Negative Urine Mucus Moderate Ur Culture Indicated? No Urine Glucose Negative Last Vital Signs Temp 37 C 08/23/25 19:37 Pulse 64 08/23/25 19:37 Resp 22 08/23/25 17:34 BP 121/64 08/23/25 19:37 Pulse Ox 96 08/23/25 19:37 VTE Prohylaxis Risk Level: Low Risk Contraindications: None Prophylaxis: Patient ambulatory PAWSS Have you Been Recently Intoxicated or Drunk Within the Last 30 days?: Yes Have you Ever Experienced Previous Episodes of Alcohol Withdrawal?: No Have you ever Experienced Withdrawal Seizures?: No Have you ever Experienced Delirium Tremens(DT)s?: No Have you ever undergone Alcohol Rehabilitation Treatment (i.e, inpt ot outpatient treatment programs)?: No Have you ever Experienced Blackouts?: No Have you ever Combined Alcohol with other Downers within the last 90 days?: No Have you ever Combined Alcohol with any other Substance of Abuse during the last 90 days?: No Positive Blood Alcohol level on Presentation? [PCS.BAL]: No Evidence of Increased Autonomic Activity (i.e. HR>120, tremor, sweating, agitation, nausea)?: No Result: 1 Time Spent Time spent with Patient: <40 minutes Time was spent: preparing to see the patient(eg.review tests), obtaining and/or reviewing separately otained hiistory, ordering medications,tests, procedures, referring, communicating with other health animal care assistant, indepentently interpreting results, counseling the patient and care coordination
[2025-08-23] MEDS: Lactated Ringers 1,000 ML 150 ML IV (23:27)
[2025-08-24] VITALS (7 sets, daily range): BP systolic 103–125; BP diastolic 58–73; PULSE 55–68; RESP 16–18; TEMP 36.6–37.2; O2SAT 96–100
[2025-08-24 06:00] LABS: Abs Immature Grans 0.04 10^3/uL (0.0-0.06); HCT 40.2 % (40.0-50.0); HGB 13.1 g/dL (13.5-17.5); Immature Grans % 0.4 %; MCH 28.0 pg (27.0-33.0); MCHC 32.6 % (32.0-36.0); MCV 86 fL (80-95); MPV 11.0 fL (8.0-11.0); Platelet Count 226 10^3/uL (130-400); RBC 4.68 10^6/uL (4.36-5.78); RDW 12.5 % (11.8-14.1); RDW-SD 38.9 fL; WBC 9.99 10^3/uL (4.4-10.8)
[2025-08-24 06:19] LABS: ALT 31 U/L (10-49); AST 21 U/L (<34); Albumin 4.1 g/dL (3.2-5.0); Alkaline Phosphatase 56 U/L (46-116); Anion Gap 8.2 mmol/L (3-11); BUN 13 mg/dL (9-23); Bilirubin, Total 0.70 mg/dL (0.2-1.2); CO2 27.8 mmol/L (20.0-31.0); Calcium 8.6 mg/dL (8.3-10.6); Chloride 107 mmol/L (98-107); Glucose 96 mg/dL (74-106); Potassium 3.6 mmol/L (3.5-5.1); Sodium 143 mmol/L (136-145); Total Protein 6.6 g/dL (5.7-8.2)
[2025-08-24] MEDS: Lactated Ringers 1,000 ML 150 ML IV ×3 (06:20→19:17)
[2025-08-24] MEDS: Tamsulosin 0.4 MG CAPCR PO (08:01)
--- NOTE | 2025-08-24 08:08 | PDOC.CMIN ---
Date of service: 08/24/25 Time of Service: 08:[address] [facility] Initial Assessment Reason for Hospitalization: nephrolithiasis Functional Status/Living Situation Patient Presentation: Fuentes presented to the ED last night with right flank pain. He had been seen in the ER the day prior and diagnosed with a right sided kidney stone and mild hydronephrosis. He was discharged at that time with instructions to f/u with urology, and was given prescriptions for flomax and pain control. Yesterday he developed uncontrolled vomiting, was unable to keep down any fluids or medications, so he returned to the ED. Fuentes has been accepted for transfer by [facility] urology, as [facility] urology is not available until next week. Fuentes is aware of the need for transfer and its reasoning. Fuentes was sitting up in bed, watching TV, when CM met with him today. He was very pleasant with CM. Fuentes lives at home with his parents. He attends [employer] in [place], [place]. 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 Fuentes denied any pain. He is being kept NPO for possible procedure at [facility], and this is his only complaint for CM. 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: Other (student) Instrumental Activities of Daily Living (ADLs): Independent Medications Medication Management: No Issues/Barriers identified Advance Directives Advance Directives: Do you have an Advance Directive: N 03/02/13, 19:06 AD On File at [facility]: N 03/02/13, 18:34 Date Asked 08/23/25 Today, 07:06 AD Date Reviewed COLST On File at [facility] No 06/02/23, 20:14 COLST Date Scanned Code Status Resuscitation Status Full Code Insurance Coverage/Financial Issues Insurance: [employer] Care Team Visit Care Team Role Provider Type Gaston Reese MD [facility] STAFF PHYSICIAN Felicitas Seymour Primary Care Provider NURSE PRACTITIONER Jeanette Medina Emergency Provider NURSE PRACTITIONER Emilio Espinoza MD Admit Provider [facility] STAFF PHYSICIAN Attending Provider Discharge Potential Discharge Needs: Other (transfer to [facility] urology service ) Anticipated Barriers to Discharge: Bed availability Patient/Family Education Needs: Review discharge instructions, discuss Ask Me Three Transportation: EMS Plan: Fuentes will transfer to [facility] once a bed is available for him. He will transport via EMS as arranged by the RN finishing area supervisor. CM will continue to follow, and provide a new abscence note if needed. Social Determinants of Health Screening Social Determinants of health last assessed in clinic: 08/24/25 Will the Patient Participate in the Screening?: Yes Do you worry about having a steady place to live?: no Problems where you live: no known problems In the past 12 months, have you had to go without electric, gas, oil or water in your home?: no 1. Within the past 12 months, we worried whether our food would run out before we got money to buy more.: Don't know/refused 2. Within the past 12 months, the food we bought just didn't last and we didn't have money to get more.: Don't know/refused Has lack of transportation kept you from medical appointments or from doing things needed for daily living?: no Has anyone in your life made you feel unsafe or unsupported?: no How hard is it for you to pay for the very basics like food, housing, medical care, and heating? 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 is a student in [employer] school who is living with his parents [facility] All Active Problems (Updated 08/23/25 @ 23:23 by Emilio Espinoza MD) Nausea & vomiting (Acute) Nephrolithiasis (Chronic) Pediatric body mass index (BMI) of greater than or equal to 95th percentile for age (Acute) Medical History Snores Sprained ankle Happened 2-3 weeks ago 07/23/19 Surgical History Circumcision Family History Mother Obstructive sleep apnea Essential hypertension Mental disorder DEPRESSION/ANXIETY Father Obstructive sleep apnea Diabetes Mental disorder DEPRESSION PBA (pseudobulbar affect) Multiple sclerosis Asthma GRANDPARENT Diabetes Essential hypertension Heart disease Neoplasm Brother ADHD (attention deficit hyperactivity disorder) Asthma Social History (Updated 07/31/22 @ 16:34 by Joya Long RN) Smoking/Tobacco Use Status: Current every day Second Hand Exposure: No Smoking risk assessment performed?: Yes Alcohol Intake: current Alcohol Intake frequency: a few times a month Alcohol type: beer and hard liquor Drug use: Daily Substance use type: marijuana Adopted: No Foster care: No Housing: house Communication Needs: None Education Level: high school Details: [employer], 12th grade ([phone]) Pets and animals: Yes (1 dog, 2 cats) Pets and animals: cat(s) and dog(s) Current gender identity: male What type of physical activity do you participate in: other Details: Lacrosse Seatbelt use: always Helmet use: Yes Helmet use: always Fire extinguisher in home: No Carbon monox detector in home: Yes Firearms in home: Yes Firearms unloaded and locked: Yes Do you feel safe at home: Yes Do you feel safe in your relationship?: Yes
--- NOTE | 2025-08-24 17:25 | W.PM.DS.N ---
Date of service: 08/24/25 Time of Service: 17:25 DS: Diagnosis Discharge Diagnosis (1) Nephrolithiasis: Status: Chronic (2) Nausea & vomiting: Status: Acute Discharge Plan Disposition Patient Disposition: Transfer-Acute Inpatient Care Specific Acute Inpt Facility: [facility] Condition: Stable Discharge Details Reason For Visit: Renal Calculi Admit Date/Time: 08/23/25 23:05 Admit Provider: Emilio Espinoza Attending Provider: Emilio Espinoza Primary Care Provider: Felicitas Seymour Hospital Course Hospital Course: 20 y/o male with no significant PMH who presented to the ED yesterday with right flank pain and nausea/vomiting. He was found to have 2-3mm right UVJ stone with hydronephrosis. Local urology not available this week so was consulted and accepted transfer for ureteral stenting pending bed availability. He was comfortable while awaiting discharge and was treated with tamsulosin and IV fluids and ketoralac as needed. His WBC was initially 17.05 and went down to 9.99. He received one dose of ceftriaxone in the emergency room but this was not continued as there were no WBC/LE/nitrites on urinalysis and he was not febrile. He was urinating well and straining his urine but no stone was found. Home Meds and New Rx's Prescriptions: No Action tamsulosin 0.4 mg capsule 0.4 mg PO DAILY Qty: 14 0RF morphine 15 mg tablet 15 mg PO Q6H PRNQty: 20 0RF Discharge Instructions Activity:: Activity as Tolerated Equipment/Supplies:: No Equipment Needed Diet:: As Tolerated DS: Summary Time Spent with Patient providing and/or coordinating discharge services: Greater than 30 minutes Status at Discharge Functional status at discharge: independent ambulation Overall status at discharge: patient is not back to baseline Mental Status: mental status grossly normal Speech and Movement: speech and movement normal Mood: congruent mood Affect: normal affect Exam Narrative Exam Narrative: Gen: alert and oriented, NAD cv: rrr no mrg lungs: nl effort ctab abd- +bs, soft, mildly tender right mid abdomen to deep palpation, no guarding/rebound back mild ttp right flank ext: no cyanosis or edema, warm Psych Mental Status: mental status grossly normal Speech and Movement: speech and movement normal Mood: congruent mood Affect: normal affect DS: Data Vitals/I&O Vitals and I&O: Vital Signs Temperature 37.1 C 08/24/25 15:33 Temperature Source Temporal Artery Scan 08/24/25 06:20 Pulse 61 08/24/25 15:33 Respiratory Rate 18 08/24/25 06:20 Respiratory Effort Normal 08/24/25 00:05 Respiratory Depth Normal 08/24/25 00:05 Respiratory Pattern Normal 08/24/25 00:05 Blood Pressure 125/64 08/24/25 15:33 Blood Pressure Mean 83 08/24/25 15:33 Blood Pressure Position Sitting 08/24/25 00:05 Pulse Oximetry 98 08/24/25 15:33 Oxygen Delivery Method Room Air 08/24/25 06:20 Oxygen Flow Rate 0 08/24/25 06:20 Pain Level 0 08/24/25 00:05 Intake & Output 08/23/25 08/24/25 08/24/25 23:59 11:59 23:59 Intake Total 1050 / 1050 1000 / 2000 1000 / 2000 Output Total 1450 / 2550 1100 / 2550 Balance 1050 / 1050 -450 / -550 -100 / -550 Weight 104.326 kg 112.1 kg Intake: IV 1050 / 1050 1000 / 2000 1000 / 2000 Output: Urine 1450 / 2550 1100 / 2550 Other: Urine Color Yellow Pale Urine Appearance Clear Clear Urine Odor None None Strain Urine Result Negative-No Stones/Gravel Comment no stones noticeable Data Completed and Pending Pending Labs at Discharge: 08/23/25 08/23/25 08/24/25 17:53 18:48 05:24 WBC 17.05 H 9.99 RBC 4.95 4.68 Hgb 13.8 13.1 L Hct 41.5 40.2 MCV 84 86 MCH 27.9 28.0 MCHC 33.3 32.6 RDW 12.3 12.5 Plt Count 237 226 MPV 10.5 11.0 Immature Gran % 0.5 0.4 Neutrophils % 82.3 61.1 Lymphocytes % 11.3 30.0 Monocytes % 5.3 6.5 Eosinophils % 0.4 1.8 Basophils % 0.2 0.2 Nucleated RBC % 0.0 0.0 Absolute Neutrophils 14.03 H 6.10 Absolute Lymphocytes 1.93 3.00 Absolute Monocytes 0.90 H 0.65 Absolute Eosinophils 0.07 0.18 Absolute Basophils 0.03 0.02 Sodium 142 143 Potassium 3.9 3.6 Chloride 107 107 Carbon Dioxide 26.6 27.8 Anion Gap 8.4 8.2 BUN 17 13 Creatinine 1.15 0.93 Est GFR (CKD-EPI 2020) 80.26 102.55 Glucose 102 96 Calcium 9.1 8.6 Total Bilirubin 0.70 AST 21 ALT 31 Alkaline Phosphatase 56 Total Protein 6.6 Albumin 4.1 Urine Color Yellow Urine Clarity Clear Urine pH 6.0 Ur Specific [place] 1.020 Urine Protein Trace Urine Ketones Trace H Urine Blood Large H Urine Nitrite Negative Urine Bilirubin Negative Urine Urobilinogen 0.2 Ur Leukocyte Esterase Negative Urine RBC >50 H Urine WBC Negative Ur Epithelial Cells Rare Urine Crystals Negative Urine Bacteria Moderate Urine Casts Negative Urine Mucus Moderate Ur Culture Indicated? No Urine Glucose Negative Preliminary micro results at discharge 08/23/25 20:22 Blood Blood Culture - Pending 08/23/25 19:45 Blood Blood Culture - Pending [facility] All Active Problems (Updated 08/23/25 @ 23:23 by Emilio Espinoza MD) Nausea & vomiting (Acute) Nephrolithiasis (Chronic) Pediatric body mass index (BMI) of greater than or equal to 95th percentile for age (Acute) Medical History Snores Sprained ankle Happened 2-3 weeks ago 07/23/19 Surgical History Circumcision Family History Mother Obstructive sleep apnea Essential hypertension Mental disorder DEPRESSION/ANXIETY Father Obstructive sleep apnea Diabetes Mental disorder DEPRESSION PBA (pseudobulbar affect) Multiple sclerosis Asthma GRANDPARENT Diabetes Essential hypertension Heart disease Neoplasm Brother ADHD (attention deficit hyperactivity disorder) Asthma Social History (Updated 07/31/22 @ 16:34 by Joay Long RN) Smoking/Tobacco Use Status: Current every day Second Hand Exposure: No Smoking risk assessment performed?: Yes Alcohol Intake: current Alcohol Intake frequency: a few times a month Alcohol type: beer and hard liquor Drug use: Daily Substance use type: marijuana Adopted: No Foster care: No Housing: house Communication Needs: None Education Level: high school Details: [employer], 12th grade ([id number]) Pets and animals: Yes (1 dog, 2 cats) Pets and animals: cat(s) and dog(s) Current gender identity: male What type of physical activity do you participate in: other Details: Lacrosse Seatbelt use: always Helmet use: Yes Helmet use: always Fire extinguisher in home: No Carbon monox detector in home: Yes Firearms in home: Yes Firearms unloaded and locked: Yes Do you feel safe at home: Yes Do you feel safe in your relationship?: Yes Time Spent with Patient Time Spent with Patient: <45 minutes Time was spent: preparing to see the patient(eg.review tests), obtaining and/or reviewing separately otained hiistory, ordering medications,tests, procedures, referring, communicating with other health med care manager, indepentently interpreting results, counseling the patient and care coordination
== END 2025-08-24 19:35 | disposition short-term general hospital (02) ==
LOC: ER 22:59 → ICU 08-24 00:01
PROVIDERS: Admitting Provider Hospitalist; Emergency Provider Nurse Practitioner Family; PCP Nurse Practitioner Family; Responsible Provider Family Medicine; Visit Provider Hospitalist
DX: N20.0 Calculus of kidney (principal); R11.2 Nausea with vomiting, unspecified; K76.0 Fatty (change of) liver, not elsewhere classified; F17.210 Nicotine dependence, cigarettes, uncomplicated; F12.90 Cannabis use, unspecified, uncomplicated
CPT/HCPCS: 00123; 36415; 80048; 80053; 87040; 96361; 96365; 96375; 99285; 74176; 81003; 81015; 85025; 99222; 99238; G0378; J0696; J1885; J2405